=== PATIENT | male | born 1985 | race Caucasian/White ===

== ENCOUNTER 2016-10-14 22:24 | Emergency (ER) | payer OTHER ==
[~2016-10-14] VITALS: Ht 182.9 cm; Wt 95.2 kg
--- NOTE | ~2016-10-14 | CT71 ---
[facility] A Service [facility] RADIOLOGY TEXT RESULTS PATIENT: AYANA MATAMOROS LOCATION: SED : 81 UNIT #: [id number] AGE: [address]: Gian Morrison PAC SEX: M ORDER DR: [id number] [place] [id number] E MR#: [id number] Acc #: [id number] NAME: AYANA MATAMOROS : 1985 SEX: M STUDY DATE/TIME: 10/15/2016 0:13 UNIT: SED ROOM: STUDY DESCRIPTION: CT Head Wo Contrast Attending Physician: Gian Morrison P.A.-C. Ordering Physician: Gian Morrison P.A.-C. MEDICAL IMAGING REPORT This report is preliminary unless electronic signature is present. EXAM CT head without contrast. INDICATIONS Frontal headache, nausea, vomiting and dizziness for the past [address] of the head. This CT exam was performed with one or more of the following radiation dose reduction techniques: automatic exposure control, adjustment of mA and/or kV according to patient size, and iterative reconstruction. COMPARISON None. FINDINGS No acute hemorrhage, abnormal mass effect, extraaxial fluid collection or hydrocephalus. No evidence for an acute or early subacute large territory infarct. No depressed calvarial fracture. The paranasal sinuses and mastoid air cells are clear. IMPRESSION No acute intracranial findings. Dictated by... Gorge Yost M.D. THIS IS AN ELECTRONICALLY VERIFIED REPORT Gorge Yost M.D. at 10/19/2016 8:56 AM EED/nida TD: 10/15/2016 10:20 [facility] A Service [facility] RADIOLOGY TEXT RESULTS PATIENT: AYANA MATAMOROS LOCATION: SED : 81 UNIT #: [id number] AGE: [address]: Gian Morrison PAC SEX: M ORDER DR: JOB #: [id number] MEDICAL IMAGING REPORT Page 1 of 1
[2016-10-14] MEDS ORDERED: NO MEDICATIONS (22:54)
[2016-10-14 23:53] LABS: BASOPHIL% 0.6 % (0-2.5); EOSINOPHIL# 0.2 X10e3 (0-0.7); EOSINOPHIL% 2.1 % (0.0-7.0); HEMATOCRIT 46.5 % (38.0-50.0); HEMOGLOBIN 16.3 gm/dL (13.0-16.0); LYMPHOCYTE# 1.6 X10e3 (1.0-3.5); LYMPHOCYTE% 19.6 % (17.0-45.0); MEAN CELL VOLUME 83.9 FL (83-96); MEAN CORPUSCULAR HEMOGLOBIN 29.4 PG (28-34); MEAN PLATELET VOLUME 8.1 FL (6.5-11.5); MONOCYTE# 0.6 X10e3 (0-1.0); MONOCYTE% 6.7 % (3.0-12.0); NEUTROPHIL# 5.8 X10e3 (1.5-7.1); PLATELET COUNT 270 X10e3 (140-420); RED BLOOD COUNT 5.55 X10e (3.90-5.60); RED CELL DISTRIBUTION WIDTH 12.9 % (11.0-15.5); WHITE BLOOD COUNT 8.2 X10e3 (4.0-10.5)
[2016-10-14 23:57] LABS: DIFF IND NO
[2016-10-15 00:09] LABS: BUN/CREATININE RATIO 12.72; CALCIUM SERUM 9.4 mg/dL (8.4-10.2); CREATININE SERUM 1.1 mg/dL (0.6-1.4); GLOM FILT RATE Estimated 87.8 mL/min (>60)
== END 2016-10-15 01:02 | disposition home or self-care (01) ==
LOC: SED 22:24
PROVIDERS: Physician Assistant
DX: G43.909 Migraine, unspecified, not intractable, without status migrainosus (principal); Z91.040 Latex allergy status
CPT/HCPCS: 36415; 70450; 80048; 85025; 96374; 96375; 99284; J1200; J1885; J2550